=== PATIENT | female | born 1950 ===

== ENCOUNTER 2018-01-09 10:45 | Observation (INO) | payer OTHER, MEDICARE ==
--- NOTE | 2018-01-08 18:40 | GHP ---
[f rep st] PREOP HISTORY AND PHYSICAL DATE OF ADMISSION: 01/09/2018 DATE OF SURGERY: 01/09/2018. HISTORY: Patient is a 67-year-old female who presents with bilateral knee pain, her left knee more s everely so. She has pain, mechanical symptoms. Her x-rays show severe degenerative osteoarthritis o f the knee with joint space narrowing, degenerative lipping, subchondral sclerosis. She has had cons ervative management including steroid injection. A left total knee arthroplasty is planned. PAST MEDICAL HISTORY: She has an allergy to spironolactone. MEDICATIONS: Include metoprolol 100 mg p.o. twice daily, amlodipine 10 mg-atorvastatin 10 mg tablets , clopidogrel 75 mg, lisinopril/hydrochlorothiazide, Naprosyn, tramadol on a p.r.n. basis. She has n ever been a smoker. She has elevated cholesterol, hypertension. Her surgeries have included bilater al carotid endarterectomies. REVIEW OF SYSTEMS: Positive for her hypertension and carotid artery disease. PHYSICAL EXAM: GENERAL: Patient is a well-developed, well-nourished female in no apparent distress. HEAD AND NECK: Normocephalic, atraumatic. CHEST: Clear. CARDIOVASCULAR: Regular rate and rhyth m. ABDOMEN: Soft. NEUROLOGICAL: She is alert and oriented x3. Exam shows mild swelling. She has tenderness along her joint lines. She has only about 45 degrees of flexion. IMPRESSION: Left knee osteoarthritis. PLAN: Left total knee arthroplasty. Benefits and risks of surgery have been reviewed including risk of infection, damage to blood vessel or nerve, failure or loosening of components and need for nish ion, bleeding and need for transfusion. I have reviewed the rigorous nature of the rehabilitation. She has signed her consent form, wishes to proceed. /[id number]/MODL
[~2018-01-09 10:45] MED LIST: POVIDONE-IODINE 20 ML in SODIUM CL IRRIG SOLUTION 500 ML IRR ONE; ROPIVACAINE 0.2% 80 MG, EPINEPHrine 0.2 MG, KETOROLAC TROMETHAMINE 30 MG in SYRINGE 0 ML IU ONE; TRANEXAMIC ACID 1,000 MG in NS (SYRINGE) 50 ML IV ONE; TRANEXAMIC ACID 2,000 MG in NS (SYRINGE) 50 ML IV ONE
[2018-01-09] MEDS ORDERED: GABAPENTIN 300 MG CAP PO ONE (12:02)
[2018-01-09] MEDS ORDERED: ceFAZolin 2 GM/SWFI 2 GM/20 ML SYR IVP ONE (12:02)
[2018-01-09] MEDS ORDERED: ACETAMINOPHEN 325 MG TAB PO ONE (12:02)
[2018-01-09] MEDS ORDERED: DEXAMETHASONE 4 MG/ML VIAL IVP ONE (12:02)
[2018-01-09] MEDS ORDERED: FAMOTIDINE 20 MG TAB PO ONE (12:02)
[2018-01-09] MEDS ORDERED: ONDANSETRON 4 MG/2 ML VIAL IVP ONE (12:02)
[2018-01-09] MEDS ORDERED: LR 1,000 ML IV ONE (12:03)
[2018-01-09] MEDS ORDERED: ceFAZolin 1 GM/5 ML SYR ONE (12:33)
--- NOTE | 2018-01-09 14:13 | PDHPUP ---
History & Physical Update H&P update statement: This history and physical update is based on an assessment of the patient which was completed after admission or registration (within 24 hours), but prior to the surgery/procedure. H&P update: H&P reviewed & patient examined
[2018-01-09] MEDS ORDERED: MIDAZOLAM 2 MG/2 ML VIAL ONE (14:28)
[2018-01-09] MEDS ORDERED: PROPOFOL 200 MG/20 ML VIAL ONE (14:30)
[2018-01-09] MEDS ORDERED: fentaNYL 100 MCG/2 ML INJ ONE ×3 (14:30→17:54)
[2018-01-09] MEDS ORDERED: METOCLOPRAMIDE 10 MG/2 ML VIAL ONE (14:36)
[2018-01-09] MEDS ORDERED: ONDANSETRON 4 MG/2 ML VIAL ONE (14:36)
[2018-01-09] MEDS ORDERED: METOPROLOL TARTRATE 5 MG/5 ML INJ ONE (15:48)
[2018-01-09] MEDS ORDERED: hydrALAZINE 20 MG/ML VIAL ONE (15:48)
--- NOTE | 2018-01-09 15:53 | PDANEPAE ---
ANE Past Medical History - Cardiovascular History Hx Hypertension: Yes Hx Arrhythmias: No Hx Chest Pain: No Hx Coronary Artery / Peripheral Vascular Disease: No Hx CHF / Valvular Disease: No Hx Palpitations: No - Pulmonary History Hx COPD: No Hx Asthma/Reactive Airway Disease: No Hx Recent Upper Respiratory Infection: No Hx Oxygen in Use at Home: No Hx Sleep Apnea: No Sleep Apnea Screening Result - Last Documented: Negative - Neurologic History Hx Cerebrovascular Accident: No Hx Seizures: No Hx Dementia: No - Endocrine History Hx Diabetes: No - Renal History Hx Renal Disorders: No - Liver History Hx Hepatic Disorders: No - Neurological & Psychiatric Hx Hx Neurological and Psychiatric Disorders: No - Cancer History Hx Cancer: No - Congenital Disorder History Hx Congenital Disorders: No - GI History Hx Gastrointestinal Disorders: No - Other Health History Other Health History: OA -BILAT KNEES-L KNEE WORSE - Chronic Pain History Chronic Pain: Yes (BILAT KNEES) - Surgical History Prior Surgeries: BILAT ENDARTARECTOMY '16. TONSILLECTOMY. HYSTERECTOMY ANE Review of Systems Review of Systems: - Exercise capacity METS (RN): 4 METS ANE Patient History - Allergies Allergies/Adverse Reactions: spironolactone [From Aldactone] Allergy (Verified 01/04/18 10:18) Rash - Home Medications Home Medications: Aspirin [Aspirin 81mg (*)] 81 mg PO DAILY 12/28/17 [Last Taken 12/27/17] Atorvastatin Calcium [Lipitor 20 mg (*)] 20 mg PO HS 12/28/17 [Last Taken ] Hydrochlorothiazide [HCTZ (*)] 12.5 - 25 mg PO DAILY 12/28/17 [Last Taken ] Lisinopril [Zestril 10 mg (*)] 10 mg PO DAILY 12/28/17 [Last Taken 01/08/18] Metoprolol Tartrate [Lopressor 100 mg (*)] 100 mg PO BID 12/28/17 [Last Taken 08:00] Naproxen Sodium [Aleve 220 MG (*)] 220 mg PO BID 12/28/17 [Last Taken 12/27/17] amLODIPine BESYLATE [Norvasc 5 mg (*)] 5 mg PO HS 12/28/17 [Last Taken 01/08/18] Clopidogrel Bisulfate [Plavix] 75 mg PO DAILY 01/09/18 [Last Taken 12/27/17] - NPO status NPO Since - Liquids (Date): 01/09/18 NPO Since - Liquids (Time): 09:45 NPO Since - Solids (Date): 01/08/18 NPO Since - Solids (Time): 18:00 - Smoking Hx Smoking Status: Never smoked ANE Labs/Vital Signs - Vital Signs Blood Pressure: 194/91 Heart Rate: 67 Respiratory Rate: 14 O2 Sat (%): 98 Height: 165.1 cm Weight: 105.233 kg ANE Physical Exam - Airway Mallampati Score: Class 2 - ASA Status ASA Status: III ANE Anesthesia Plan Regional Anesthesia: adductor canal FNB Urgent/Emergent Case: Roberto garcia completed preop but documented later for safe timely pt care
[2018-01-09] MEDS ORDERED: BUPIVACAINE 0.5% 30 ML SDV ONE (17:09)
[2018-01-09] MEDS ORDERED: TEMAZEPAM 15 MG CAP PO PRN (17:25)
[2018-01-09] MEDS ORDERED: ONDANSETRON 4 MG/2 ML VIAL IVP PRN (17:25)
[2018-01-09] MEDS ORDERED: LACTULOSE 20 GM/30 ML UDCUP PO PRN (17:25)
[2018-01-09] MEDS ORDERED: MAGNESIUM HYDROXIDE 30 ML UDCUP PO PRN (17:25)
[2018-01-09] MEDS ORDERED: POLYETHYLENE GLYCOL 3350 17 GM PKT PO PRN (17:25)
[2018-01-09] MEDS ORDERED: ONDANSETRON DISINTEGRATING 4 MG TAB PO PRN (17:25)
[2018-01-09] MEDS ORDERED: CYCLOBENZAPRINE 10 MG TAB PO PRN (17:25)
[2018-01-09] MEDS ORDERED: DIPHENOXYLATE/ATROPINE LOMOTIL 1 TAB PO PRN (17:25)
[2018-01-09] MEDS ORDERED: PROMETHAZINE HCL 25 MG SUPPR PR PRN (17:25)
[2018-01-09] MEDS ORDERED: BISACODYL 10 MG SUPP PR PRN (17:25)
[2018-01-09] MEDS ORDERED: diphenhydrAMINE 25 MG CAP PO PRN (17:25)
[2018-01-09] MEDS ORDERED: METOCLOPRAMIDE 10 MG/2 ML VIAL IVP PRN (17:25)
[2018-01-09] MEDS ORDERED: PROMETHAZINE HCL 25 MG/ML INJ IVP PRN ×2 (17:25→17:35)
[2018-01-09] MEDS ORDERED: LR 1,000 ML IV SCH (17:30)
[2018-01-09] MEDS ORDERED: NALOXONE HCL 0.4 MG/ML INJ IVP PRN (17:35)
[2018-01-09] MEDS ORDERED: LR 500 ML IV PRN (17:35)
[2018-01-09] MEDS ORDERED: DEXAMETHASONE 4 MG/ML VIAL IVP PRN (17:35)
--- NOTE | 2018-01-09 17:38 | POSTANESTH ---
Post Anesthetic Evaluation Cardiovascular Status: Similar to Pre-Op Cond Respiratory Status: Normal, Stable Level of Consciousness/Mental Status: Can Participate in Eval Pain Control: Adequate, Prn Tx Ordered Nausea/Vomiting Control: Adequate, Prn Tx Ordered Complications Possibly Related to Anesthesia: None Noted
[2018-01-09] MEDS ORDERED: HYDROmorphONE/DILAUDID 2 MG/ML INJ ONE (17:54)
[2018-01-09] MEDS: fentaNYL 100 MCG/2 ML INJ IVP PRN ×2 (17:56→18:16)
--- NOTE | 2018-01-09 18:11 | GOP ---
[f rep st] OPERATIVE REPORT DATE OF OPERATION: SURGEON: Chris Jack MD VEIN PUMPER: KATHARINE Henriquez LSA ANESTHESIOLOGIST: Dr. Ras Ba PREOPERATIVE DIAGNOSIS: Left knee osteoarthritis. POSTOPERATIVE DIAGNOSIS: Left knee osteoarthritis. PROCEDURE PERFORMED: Left total knee arthroplasty. FINDINGS: SPECIMENS: Included bone resected. ESTIMATED BLOOD LOSS: Less than 30 cc. INDICATIONS: The patient is a 67-year-old female who presents with history, exam and x-rays consiste nt with severe end-stage left knee osteoarthritis for which she has already tried conservative measur es. A left total knee arthroplasty is planned. DESCRIPTION OF PROCEDURE: The patient was taken to the operating room, attempt was made for a spinal but was not successful, she was placed under general anesthetic with laryngeal mask ventilation. Sh e received antibiotics as well as tranexamic acid. A tourniquet was fit high on the left thigh and t he left leg was prepped and draped thoroughly with chlorhexidine in the usual fashion. The limb was elevated, exsanguinated, and the tourniquet inflated to 300 mmHg. I made a longitudinal incision in the midline. Dissection was carried down to subcutaneous tissue. I used a medial parapatellar arthr otomy. I inverted the patella. I measured its thickness, removed 9 mm of cartilage and bone, and si zed the patella to a 32. I drilled peg holes. The combination of the trial and the patella re-estab lished the patellar thickness. The patella was inverted. The knee was flexed. I used an intramedul dewey device for the distal femur. There was no flexion contracture, so I made a simple standard 5-de gree cut. I sized the femur between a 4 and a 5, downsized to a 4, moved the tibia a little bit ante riorly to avoid notching and completed the anterior-posterior chamfer cuts as well as the notch cuts for this bi-cruciate stabilized knee. The trial fit nicely. I used an extramedullary device on the tibia, dialed in the rotation, posterior slope, and depth of cut; the tibial cut was made. I sized t he tibial surface at a size 3. I dialed in the rotation and completed the tibial prep. All surfaces were then jet lavaged with antibiotic irrigation. Methylmethacrylate was used on femur, tibia and patella, and the components implanted. I did trial r eductions with the different articular inserts. I found the 10 mm insert provided good stability of the knee and full range of motion. Size 10 crosslinked poly articular insert was applied. The tourn iquet was deflated after 80 minutes. I used Betadine irrigation bath. I infiltrated a joint cocktai l. I closed the arthrotomy with interrupted [id number] sutures of 0 Mersilene, subcutaneous tis britney closed in layers with 2-0 Monocryl, and the skin with [place]. The wound was dressed with Betadi ne-soaked Adaptic, 4 x 4's, sterile Webril, and a long-leg DON stocking was applied. There were no c omplications. DRAINS: None. COUNTS: All counts were correct. DISPOSITION: The patient was taken in stable condition to recovery. My operating room surgical technician, Nikko Westbrook, was a medical necessity for this total knee replacement. SUMMARY OF COMPONENTS: This is a [employer] knee. The femur is Oxinium. This is a bi -cruciate stabilized knee. All components cemented, femur size 4, tibia size 3, patella 32. The art icular insert 10 mm crosslinked polyethylene. /[id number]/MODL
[2018-01-09] MEDS ORDERED: ACETAMINOPHEN 325 MG TAB ONE (19:10)
[2018-01-09] MEDS: ACETAMINOPHEN 325 MG TAB PO SCH ×2 (19:12→23:57)
[2018-01-09] MEDS: METOPROLOL TARTRATE 100 MG TAB PO SCH (20:25)
[2018-01-09] MEDS: FAMOTIDINE 20 MG TAB PO SCH (20:25)
[2018-01-09] MEDS: SENNOSIDES/DOCUSATE SODIUM TAB PO SCH (20:25)
[2018-01-09] MEDS: ASPIRIN 325 MG TAB PO SCH (20:26)
[2018-01-09] MEDS ORDERED: amLODIPine BESYLATE 5 MG TAB PO SCH (21:00)
[2018-01-09] MEDS ORDERED: ATORVASTATIN CALCIUM 20 MG TAB PO SCH (21:00)
[2018-01-09] MEDS ORDERED: ceFAZolin 2 GM/DEXTROSE 100 ML IV SCH (22:00)
[2018-01-09] MEDS: ceFAZolin 2 GM/SWFI 2 GM/20 ML SYR IVP SCH (23:57)
[2018-01-10] MEDS: ceFAZolin 2 GM/SWFI 2 GM/20 ML SYR IVP SCH (06:09)
[2018-01-10] MEDS: ACETAMINOPHEN 325 MG TAB PO SCH ×2 (06:09→13:59)
[2018-01-10] MEDS: oxyCODONE IR 5 MG TAB PO PRN ×3 (06:12→14:00)
[2018-01-10] MEDS: FAMOTIDINE 20 MG TAB PO SCH (08:20)
[2018-01-10] MEDS: ASPIRIN 325 MG TAB PO SCH (08:20)
[2018-01-10] MEDS: SENNOSIDES/DOCUSATE SODIUM TAB PO SCH (08:20)
[2018-01-10] MEDS ORDERED: HYDROCHLOROTHIAZIDE 25 MG TAB PO SCH (09:00)
[2018-01-10] MEDS ORDERED: LISINOPRIL 10 MG TAB PO SCH (09:00)
--- NOTE | 2018-01-10 09:51 | SOAPPROG ---
SOAP Progress Note Assessment/Plan: Assessment: POD #1. s/p TKA Awake, alert, afebrile. Dressing clean and dry. VSS. Mild pain. OOB yesterday. Plan: PT/OT today. OK to d/c to home later today if cleared by PT. 01/10/18 09:49 Objective: Vital Signs Temp Pulse Resp BP Pulse Ox 36.6 C 59 L 16 107/54 L 98 01/10/18 07:36 01/10/18 07:36 01/10/18 07:36 01/10/18 08:21 01/10/18 07:36 Laboratory Results 01/10/18 07:22 01/09/18 01/10/18 01/11/18 05:59 05:59 05:59 Intake Total 1460 Output Total 800 Balance 660 ICD10 Worksheet Patient Problems: Problems Problem Status Onset Osteoarthritis of knee Acute - ICD10 Problem Qualifiers (1) Osteoarthritis of knee Qualifiers: Osteoarthritis type: primary Laterality: left Qualified Code(s): M17.12 - Unilateral primary osteoarthritis, left knee
--- NOTE | 2018-01-10 09:57 | PDIAF ---
- Diagnosis Diagnosis: L knee OA Code Status: Full Code - Medication Management Discharge Medications: Medications to Continue on Transfer Atorvastatin Calcium [Lipitor 20 mg (*)] 20 mg PO HS 12/28/17 [Last Taken ] Hydrochlorothiazide [HCTZ (*)] 12.5 - 25 mg PO DAILY 12/28/17 [Last Taken ] Lisinopril [Zestril 10 mg (*)] 10 mg PO DAILY 12/28/17 [Last Taken 01/08/18] Metoprolol Tartrate [Lopressor 100 mg (*)] 100 mg PO BID 12/28/17 [Last Taken 08:00] amLODIPine BESYLATE [Norvasc 5 mg (*)] 5 mg PO HS 12/28/17 [Last Taken 01/08/18] Clopidogrel Bisulfate [Plavix] 75 mg PO DAILY 01/09/18 [Last Taken 12/27/17] Acetaminophen [Tylenol 325mg (*)] 650 mg PO Q6HRS tab 01/10/18 [Last Taken Unknown] Aspirin [Aspirin 325 mg (*)] 325 mg PO DAILY tab 01/10/18 [Last Taken Unknown] Ondansetron Odt [Zofran Odt 4 mg (*)] 4 mg PO Q4HRS PRN tab 01/10/18 [Last Taken Unknown] Sennosides/Docusate Sodium [Senokot-S] 1 - 2 tab PO BID tab 01/10/18 [Last Taken Unknown] oxyCODONE IR [Oxycodone Ir (*)] 5 - 10 mg PO Q3HRS PRN tab 01/10/18 [Last Taken Unknown] Discharge Medications: Refer to the Discharge Home Medication list for PRN reason. PICC Care - Routine: N/A - Orders Services needed: Home Care, Physical Therapy Home Care Face to Face: I certify that this patient was under my care and that I had the required [id number] encounter meeting the encounter requirements on the discharge day. My findings support the fact that the patient is homebound as defined in Home Care Face to Face Continued: CMS Chapter 7 Medicare Benefits Manual 30.1.1 , The condition of the patient is such that there exists a normal inability to leave home and consequently, leaving home would require a considerable and taxing effort. Diet Recommendation: no restrictions on diet Diet Texture: Regular Texture Diet Poe: Not applicable Obed Stockings Discontinue Date: 2 weeks Wound Care Instructions: keep clean and dry. You may shower. Activity/Weight Bearing Restrictions: as tolerated. - Follow Up Care Current Providers and Referrals: Daniel Johnson DO [Primary Care Provider] - Chris Jack MD [Medical Doctor] - follow up as scheduled
[2018-01-10 12:04] VITALS: BP 119/68
--- NOTE | 2018-01-10 12:20 | ASMTCMCOM ---
CM Note CM Note Notes: Pt s/p TKA. Pt medically stable for d/c with [facility] PT. Pt address/phone verified; [facility]. Orders sent in [email or web address]. Date Signed: 01/10/2018 12:19 PM Electronically Signed By:ZACH Mancuso
[2018-01-10] MEDS: METOPROLOL TARTRATE 100 MG TAB PO SCH (13:54)
--- NOTE | 2018-01-10 15:51 | ASDISCHSUM ---
Discharge Information Plan Status:Home with Home Health Medically Cleared to Leave: Discharge Date:01/10/2018 03:40 PM CM D/C Disposition:Home Health Service ADT D/C Disposition:Home Health Service Projected Discharge Date:01/10/2018 11:00 AM Transportation at D/C:Family Discharge Delay Reason: Follow-Up Date:01/10/2018 11:00 AM Discharge Slot: Final Diagnosis: Placement Information Referral Type:*Home Health Care Services Referral ID:[id number] Provider Name:[facility] Address 1:[address] [address] Address 2: City:[place] Selection Factors: State:[place] Patient Contact Information Contact Name:NII Relationship: Address: Work Phone: City: [facility] Phone: [facility] Code: Email: Financial Information Financial Class:Medicare Primary Plan Desc:MEDICARE INPATIENT Primary Plan Number:[id number] Secondary Plan Desc:AARP/MDR SUPPLEMENT Secondary Plan Number:[id number] Assessment Information [facility] CM Progress Note CM Note CM Note Notes: Pt s/p TKA. Pt medically stable for d/c with [facility]. Pt address/phone verified; [facility]. Orders sent in [employer]. Date Signed: 01/10/2018 12:19 PM Electronically Signed By:ZACH Mancuso Intervention Information
== END 2018-01-10 15:40 | disposition home health service (06) ==
LOC: F3N 11:40
PROVIDERS: ADMIT Orthopaedic Surgery; ATTEND Orthopaedic Surgery
PROC: 0SRD0J9 Replacement of Left Knee Joint with Synthetic Substitute, Cemented, Open Approach (ICD-10-PCS; principal; 2018-01-09 14:39)
DX: M17.12 Unilateral primary osteoarthritis, left knee (principal); I10 Essential (primary) hypertension; I77.9 Disorder of arteries and arterioles, unspecified
CPT/HCPCS: 27447; 73560; 88311; 97161; 97165; 97535; C1713; C1776; G8978; G8979; G8980; G8987; G8988; G8989; J0171; J0360; J0690; J1100; J1170; J1885; J2250; J2405; J2704; J2765; J2795; J3010